=== PATIENT | female | born 1955 ===

== ENCOUNTER → 2023-02-10 | Outpatient (CLI) | payer MEDICARE | LOC: LAB 14:35 → LAB SHORT 14:35 | DX: L02.214 Cutaneous abscess of groin (principal) | CPT/HCPCS: 87070; 87075; 87205 ==

== ENCOUNTER → 2023-06-08 | Outpatient (CLI) | payer MEDICARE | LOC: LAB 10:35 → LAB SHORT 10:35 | DX: R23.8 Other skin changes (principal) | CPT/HCPCS: 87070; 87077; 87186; 87205 ==

== ENCOUNTER 2024-09-20 09:08 | Day surgery (SDC) | payer MEDICARE ==
[2024-09-20] VITALS (9 sets, daily range): BP systolic 116–161; BP diastolic 54–82
[~2024-09-20] VITALS: Ht 165.1 cm; Wt 89.5 kg
[~2024-09-20 09:08] MED LIST: ACYC400 PO; CALCIUM CARBONATE PO; COENZYME Q10100 MG PO; DOXY100 PO; HYDHCL25 PO; LEVSOD112 PO; Lactated Ringer's 1,000 ML IV SCH; MAGNESIUM GLU27.5 M1 PO; MELO7.5 PO; MERIBIN5 MG PO; OMEP20ER PO; Prinivil10 MG PO; SPIR50 PO; VITAMIN D5000 UNIT PO; ZOLP5 PO
--- NOTE | 2024-09-20 09:30 | NUR ---
History, Chart, Medications and Allergies reviewed before start of procedure. Pre-Op teaching done. Pt verbalizes understanding. Patient confirms NPO status and agrees with scheduled surgery. PT BELONGINGS PLACED UNDER GURNEY.
[2024-09-20] MEDS ORDERED: propofoL 0 ML IV ONE (09:41)
[2024-09-20] MEDS ORDERED: FentaNYL Citrate 50 MCG/ML 2 ML Injection ONE (09:41)
[2024-09-20] MEDS ORDERED: Bupivacaine 0.5% HCl 5 MG/ML 30MLVIAL ONE (09:42)
[2024-09-20] MEDS ORDERED: Scopolamine Hydrobromide Patch TD SCH (09:45)
--- NOTE | 2024-09-20 09:47 | NUR ---
IV PLACED BY [facility] [place] [facility] [place]
[2024-09-20] MEDS ORDERED: propofoL 20 ML IV ONE (10:05)
[2024-09-20] MEDS ORDERED: CeFAZolin Sodium 2,000 MG in NS 100 ML IV SCH (10:10)
[2024-09-20] MEDS ORDERED: CeFAZolin Sodium 2,000 MG VIAL ONE (10:14)
[2024-09-20] MEDS ORDERED: ePHEDrine Sulfate 50 MG/ML 1ML Injection ONE (10:43)
[2024-09-20] MEDS ORDERED: Ondansetron HCl 2 MG / ML 2ML Vial ONE (10:47)
[2024-09-20] MEDS ORDERED: OxyCODONE 5 mg/Acetamin 325 mg TABLET PO PRN (11:15)
--- NOTE | 2024-09-20 12:36 | NUR ---
1130 PT FROM PACU, AWAKE. LEFT UPPER BACK INCISION INTACT WITH SKIN GLUE NO DRAINAGE VSS,CLARISSE PO FLUIDS
== END 2024-09-20 23:00 | disposition home or self-care (01) ==
LOC: ORSCMMR 09:08 → ORD 10:30 → ORSCMMR 10:30 → ORD 11:00 → ORSCMMR 23:00
PROVIDERS: Surgery
PROC: 0JB70ZX Excision of Back Subcutaneous Tissue and Fascia, Open Approach, Diagnostic (ICD-10-PCS; principal; 2024-09-20 10:30)
DX: D17.1 Benign lipomatous neoplasm of skin and subcutaneous tissue of trunk (principal); I10 Essential (primary) hypertension; E03.9 Hypothyroidism, unspecified; Z79.899 Other long term (current) drug therapy
CPT/HCPCS: 88304; A9270; J0690; J2405; J2704; J3010; J7120

== ENCOUNTER 2025-02-14 10:05 | Day surgery (SDC) | payer MEDICARE ==
[~2025-02-14] VITALS: Ht 165.1 cm; Wt 88.8 kg
[~2025-02-14 10:05] MED LIST changes: -Lactated Ringer's 1,000 ML IV SCH; +NS 500 ML IV ONE
[2025-02-14] MEDS ORDERED: CeFAZolin Sodium 2,000 MG VIAL ONE (10:26)
[2025-02-14] MEDS ORDERED: CALCIUM (10:37)
[2025-02-14] MEDS ORDERED: XYZAL5 MG (10:39)
[2025-02-14] MEDS ORDERED: Co Q-10300 MG (10:40)
[2025-02-14] MEDS ORDERED: VITAMIN D350 MC3 (10:40)
[2025-02-14] MEDS ORDERED: ZOLP5 (10:41)
[2025-02-14] MEDS ORDERED: CALCIUM CARBON500 M1 (10:41)
[2025-02-14] MEDS ORDERED: NS 500 ML IV ONE (10:45)
[2025-02-14] MEDS ORDERED: propofoL 20 ML IV ONE (10:46)
[2025-02-14] MEDS ORDERED: Ketorolac Tromethamine 30mg Vial ONE (10:58)
[2025-02-14] MEDS ORDERED: Lidocaine 1%-Epineph 1:200000 30 ML SDV INJ ONE (11:08)
[2025-02-14 11:21] VITALS: BP 125/59
== END 2025-02-14 11:50 | disposition home or self-care (01) ==
LOC: ORSCSDS 10:05
PROVIDERS: Orthopaedic Surgery
PROC: 0LN70ZZ Release Right Hand Tendon, Open Approach (ICD-10-PCS; principal; 2025-02-14 11:35)
DX: M65.331 Trigger finger, right middle finger (principal); I10 Essential (primary) hypertension; F41.9 Anxiety disorder, unspecified; E03.9 Hypothyroidism, unspecified; K21.9 Gastro-esophageal reflux disease without esophagitis; Z79.899 Other long term (current) drug therapy
CPT/HCPCS: J0690; J1885; J2704; J7040

== ENCOUNTER → 2025-08-11 | Outpatient (CLI) | payer MEDICARE ==
[~2025-08-11] MED LIST changes: +CALCIUM; +CALCIUM CARBON500 M1; +Co Q-10300 MG; -NS 500 ML IV ONE; +VITAMIN D350 MC3; +XYZAL5 MG; +ZOLP5
[2025-08-11 16:10] LABS: Bacterial Vaginosis PCR Negative (NEGATIVE); Candida Group, PCR NOT DETECTED (NOT DETECT)
[2025-08-11 16:17] LABS: Candida glabrata-krusei, PCR DETECTED (NOT DETECT)
== END ==
LOC: LAB 13:34 → LAB SHORT 13:34
PROVIDERS: Family Medicine
DX: N89.8 Other specified noninflammatory disorders of vagina (principal)
CPT/HCPCS: 81515